=== PATIENT | male | born 1990 | race Caucasian/White ===

== ENCOUNTER 2016-09-19 13:33 | Emergency (ER) | payer SELFPAY ==
[~2016-09-19] VITALS: Ht 188 cm; Wt 90.0 kg
[2016-09-19 13:34] VITALS: BP 168/72; PULSE 99; RESP 20; TEMP 97.8; O2SAT 95
--- NOTE | 2016-09-19 13:49 | PD ---
Physical Exam Time Seen by Provider: 13:47 Narrative 26yo M c/o blisters to bottom of both great toes x 1 hour after [place] soccer [place] beach. Denies fever, vomiting. Patient seen in triage. VS reviewed. Awaiting bed placement. Data Data Last Documented VS Vital Signs Date Time Temp Pulse Resp B/P Pulse Ox O2 Delivery O2 Flow Rate FiO2 09/19/16 13:34 97.8 99 20 168/72 95 Room Air MDM Supervised Visit with JOJO: Serena Padilla Sep 19, 2016 13:49
--- NOTE | 2016-09-19 14:38 | PD ---
HPI Chief Complaint: Skin Problem Time Seen by Provider: 14:29 Travel History International Travel<30 days: No Contact w/Intl Traveler<30days: No Traveled to known affect area: No History of Present Illness HPI The patient is 26 years old. Here is of blisters underneath the big toes. He was playing soccer on the beach and developed blisters on playing soccer. When he has had some pain since, a burning sensation which is worse with stepping on the toes with the blisters. No other complaint offered. PFSH Past Surgical History Other Surgery: Yes (INGROWN TOE NAIL SX ) Social History Alcohol Use: Yes (OCC) Tobacco Use: No Substance Use: No Allergies-Medications (Allergen,Severity, Reaction): Coded Allergies: No Known Allergies (Unverified , 09/19/16) Reported Meds & Prescriptions Reported Meds & Active Scripts Active No Active Prescriptions or Reported Medications Review of Systems Skin: Positive Lesions Physical Exam Narrative GENERAL: 26 yo M, WNWD, NAD SKIN: Warm and dry. Along the planter aspects of the big toes there are blisters. On the right big toe, there is an approximate 2.5cm open blister. On the left big toe there is a 1.5cm open blister. HEAD: Normocephalic. EYES: No scleral icterus. No injection or drainage. NECK: Supple, trachea midline. No JVD or lymphadenopathy. GASTROINTESTINAL: Abdomen soft, non-tender, nondistended. MUSCULOSKELETAL: No cyanosis, or edema. BACK: Nontender without obvious deformity. No CVA tenderness. Data Data Last Documented VS Vital Signs Date Time Temp Pulse Resp B/P Pulse Ox O2 Delivery O2 Flow Rate FiO2 09/19/16 13:34 97.8 99 20 168/72 95 Room Air MDM Medical Decision Making Medical Screen Exam Complete: Yes Emergency Medical Condition: Yes Differential Diagnosis blisters, cellulitis, dermatitis Narrative Course pt has blisters from participating in athletics on the beach. proper hygiene discussed at bedside. return precautions discussed. Diagnosis Primary Impression: Blister Referrals: Primary Care Physician 2 days Additional Instructions: You have a choice when it comes to health care, and we are glad that you chose [facility]. Hopefully, we have met your expectations on today's visit. You are welcome to return to [facility] at any time, as we are committed to meeting the health care needs of our community. Med/Other Pt SpecificInfo: No Change to Meds Scripts No Active Prescriptions or Reported Meds Disposition: 01 DISCHARGE HOME Condition: Rodolfo Hwang MD Sep 19, 2016 14:38
== END 2016-09-19 15:35 | disposition home or self-care (01) ==
LOC: NEPD 13:33
DX: S90.422A Blister (nonthermal), left great toe, initial encounter (principal); S90.421A Blister (nonthermal), right great toe, initial encounter; Y93.66 Activity, soccer; Y92.832 Beach as the place of occurrence of the external cause
CPT/HCPCS: 99281